=== PATIENT | female | born 1995 | race Hispanic/Latino ===

== ENCOUNTER 2019-06-23 09:06 | Outpatient (CLI) | payer MEDICAID ==
--- NOTE | 2019-06-23 13:58 | ULT ---
PELVIC ULTRASOUND: Endovaginal ultrasound of pelvis performed. INDICATION: Followup ovarian cyst. The patient states prior ultrasound at [facility] 3 weeks ago revealed o varian cyst. FINDINGS: Uterus shows mild heterogeneity. Endometrium is within normal range at 4-5 mm. The right ovary is identified. There is a right ovarian cyst measuring up to 3 cm. Color Doppler wi th spectral analysis demonstrates flow to the right ovary. The left ovary reveals 2 large cysts, 1 measuring up to 5 cm and the other measuring approximately 3 cm. Color Doppler and spectral analysis demonstrates flow to this left ovary. No free fluid identified. IMPRESSION: Bilateral ovarian cysts. Two larges cysts on the left as described. POS: [facility]
== END 2019-06-23 09:07 | disposition home or self-care (01) ==
LOC: NAV ULT 09:06
PROVIDERS: ATTEND Nurse Practitioner Family
DX: N83.201 Unspecified ovarian cyst, right side (principal); N83.202 Unspecified ovarian cyst, left side
CPT/HCPCS: 76856

== ENCOUNTER 2019-07-07 09:34 | Outpatient (CLI) | payer MEDICAID ==
--- NOTE | 2019-07-07 10:56 | ULT ---
Pelvic ultrasound: 07/07/2019 COMPARISON: 06/23/2019 HISTORY: Reevaluate ovarian cyst TECHNIQUE: Multiplanar grayscale sonographic imaging of the pelvis obtained endovaginal imaging. The ovaries are assessed with color flow and spectral analysis FINDINGS: The uterus measures 7.9 x 4.5 x 4.9 cm, with a normal 7 mm endometrial stripe. No free fluid is seen in the. No uterine mass identified. Right ovary measures 3.3 x 2.8 x 1.7 cm. Normal blood flow is seen within the right ovary. Left ovary measures 3.7 x 3.7 x 3.6 cm and demonstrates normal blood flow. There is a cyst within the left ovary measuring up to 3.1 cm. The insurance analyst demonstrates 3 prominent cyst in the region of the right ovary measuring 4.9 cm, 3.3 cm, and 1.7 cm respectively. On the prior examination bilateral cysts were noted, measuring up to 3 cm on the right and up to 5 cm on the left. IMPRESSION: Bilateral ovarian cysts as detailed above. On this examination the largest cyst is noted on the right while on the prior examination the largest cysts were noted on the left. These ovarian cyst could be best assessed with pelvic MRI or follow-up pelvic ultrasound in 6 weeks.
== END 2019-07-07 09:35 | disposition home or self-care (01) ==
LOC: NAV ULT 09:34
PROVIDERS: ATTEND Nurse Practitioner Family
DX: N83.202 Unspecified ovarian cyst, left side (principal); N83.201 Unspecified ovarian cyst, right side
CPT/HCPCS: 76856